=== PATIENT | female | born 1960 | race African-American/Black ===

== ENCOUNTER 2019-04-09 18:13 | Emergency (ER) | payer OTHER ==
[~2019-04-09] VITALS: Ht 167.6 cm; Wt 90.0 kg
[2019-04-09 18:28] VITALS: BP 185/108
[2019-04-09] MEDS ORDERED: IBUPROFEN 800 MG TABLET PO STA (19:30)
[2019-04-09] MEDS ORDERED: IBUPROFEN 200 MG TABLET ONE (19:47)
== END 2019-04-09 20:45 | disposition home or self-care (01) ==
LOC: ED 20:39
DX: G56.01 Carpal tunnel syndrome, right upper limb (principal); M25.531 Pain in right wrist
CPT/HCPCS: 29260; 99283

== ENCOUNTER 2020-10-30 17:05 | Emergency (ER) | payer MEDICAID, OTHER ==
[~2020-10-30] VITALS: Ht 170.2 cm; Wt 84.9 kg
--- NOTE | 2020-10-30 17:37 | NUR ---
cc of right hand swelling and pain 01/03 since tuesday. right hand does appear to look more swollen when compared to left hand. pt denies wrist pain. pt also denies trauma to hand.
[2020-10-30 18:00] LABS: BASOPHILS % (AUTO) 1 % (0-1); EOSINOPHILS % (AUTO) 1 % (1-7); LYMPHOCYTES % (AUTO) 35 % (22-44); MEAN CORPUSCULAR HEMOGLOBIN 27.9 pg (27.0-34.8); MEAN CORPUSCULAR HGB CONC 33.2 g/dL (32.4-35.8); MEAN PLATELET VOLUME 8.3 fL (7.4-10.4); MONOCYTES % (AUTO) 9 % (2-9); NEUTROPHILS % (AUTO) 55 % (42-75); PLATELET COUNT 237 x10^3/uL (130-400); RED BLOOD COUNT 4.64 x10^6/uL (3.82-5.3); RED CELL DISTRIBUTION WIDTH 13.2 % (9.6-15.2)
[2020-10-30 18:01] LABS: MD NO
[2020-10-30 18:09] LABS: ALANINE AMINOTRANSFERASE 15 U/L (12-78); ALBUMIN 3.3 g/dL (3.4-5.0); ANION GAP 7 mmol/L (5-15); CALCIUM 8.9 mg/dL (8.5-10.1); CHLORIDE 111 mmol/L (98-107); CREATININE 1.17 mg/dL (0.55-1.02)
[2020-10-30 18:12] LABS: ALKALINE PHOSPHATASE 103 U/L (45-117); BILIRUBIN,TOTAL 0.3 mg/dL (0.2-1.0); TOTAL PROTEIN 8.2 g/dL (6.4-8.2)
[2020-10-30 19:07] VITALS: BP 165/84
--- NOTE | 2020-10-30 19:09 | NUR ---
task rn: Patient/ given discharge instructions and they have confirmed that they understand the instructions. Patient ambulatory with steady gait. nad, denies additional questions or needs, no personal belongings left in room after dc.
== END 2020-10-30 19:50 | disposition home or self-care (01) ==
LOC: ED 18:15
DX: M79.601 Pain in right arm (principal); M79.89 Other specified soft tissue disorders
CPT/HCPCS: 36415; 80053; 85025; 99284